=== PATIENT | female | born 1955 | race Caucasian/White ===

== ENCOUNTER 2016-11-03 13:26 | Emergency (ER) | payer OTHER ==
--- NOTE | 2016-11-03 14:12 | RAD ---
PORTABLE CHEST 1 VIEW: Date: 11/03/16 Time: 1339 hours HISTORY: Difficulty breathing, cough. FINDINGS: The heart size is normal. The lungs are well expanded without focal areas of consolidation, pneumoth orax, or pleural effusions. IMPRESSION: No radiographic evidence of acute cardiopulmonary process. POS: [facility]
[2016-11-03 14:17] LABS: Bilirubin Negative (Negative); Blood, Urine Negative (Negative); Glucose, Urine (Dipstick) Negative (Negative); Ketone, Urine Negative (Negative); Nitrite Negative (Negative); Protein, Urine (Dipstick) Negative (Neg-Trace); Urobilinogen 0.2 mg/dL (0.2-1.0)
[2016-11-03 14:27] LABS: ALT (SGPT) 18 U/L (0-55); AST (SGOT) 17 U/L (5-34); Alkaline Phosphatase 85 U/L (40-150); Anion Gap 15 mmol/L (10-20); BUN (Urea Nitrogen) 19 mg/dL (9.8-20.1); Bilirubin, Total 0.3 mg/dL (0.2-1.2); Calc. Creatinine Clearance 0 mL/min (70-130); Calcium 9.2 mg/dL (7.8-10.44); Carbon Dioxide 23 mmol/L (22-29); Chloride 107 mmol/L (98-107); Estimated GFR-MDRD 73; Protein, Total 7.2 g/dL (6.0-8.3)
[2016-11-03 14:31] LABS: Troponin I Less than 0.010 ng/mL (< 0.028)
[2016-11-03 14:33] LABS: Band 1 % (5-11); Hematocrit 43.6 % (36.0-47.0); Mean Platelet Volume 8.2 fL (7.4-10.4); Neutrophil 73 % (42-75); Red Blood Cell (RBC) Count 4.67 mill/uL (4.20-5.40); White Blood Cell (WBC) Count 11.8 thou/uL (4.8-10.8)
[2016-11-03] MEDS ORDERED: cefTRIAXone\\ROCEPHIN 1 GM VIAL ONE (14:48)
[2016-11-03] MEDS ORDERED: Sodium Chloride 0.9% 100 ML ONE (14:50)
[2016-11-03] MEDS ORDERED: Dexamethasone 20 MG/5 ML VIAL ONE (14:51)
== END 2016-11-03 15:35 | disposition home or self-care (01) ==
LOC: NAV ERS 13:26
DX: J06.9 Acute upper respiratory infection, unspecified (principal); I10 Essential (primary) hypertension; E78.5 Hyperlipidemia, unspecified; G25.81 Restless legs syndrome; F41.9 Anxiety disorder, unspecified; F32.9 Major depressive disorder, single episode, unspecified; F17.210 Nicotine dependence, cigarettes, uncomplicated; Z79.82 Long term (current) use of aspirin; Z79.899 Other long term (current) drug therapy
CPT/HCPCS: 71010; 80053; 81003; 82553; 83880; 84484; 85025; 93005; 96365; 96375; J0696; J1100; J7620

== ENCOUNTER 2017-11-18 20:39 | Emergency (ER) | payer OTHER ==
[2017-11-18] MEDS ORDERED: Dexamethasone 20 MG/5 ML VIAL ONE (21:16)
[2017-11-18] MEDS ORDERED: diphenhydrAMINE 25 MG CAP ONE (21:16)
== END 2017-11-18 21:35 | disposition home or self-care (01) ==
LOC: EDBD → NAV ERS 20:39
DX: T78.40XA Allergy, unspecified, initial encounter (principal); I10 Essential (primary) hypertension; E78.5 Hyperlipidemia, unspecified; F41.9 Anxiety disorder, unspecified; F32.9 Major depressive disorder, single episode, unspecified; F17.210 Nicotine dependence, cigarettes, uncomplicated; I73.9 Peripheral vascular disease, unspecified; G25.81 Restless legs syndrome
CPT/HCPCS: 93005; 96372; J1100

== ENCOUNTER 2017-12-30 13:46 | Emergency (ER) | payer OTHER | END 2017-12-30 14:22 | disposition home or self-care (01) | LOC: EDBD → NAV ERS 13:46 | DX: M25.511 Pain in right shoulder (principal); M54.6 Pain in thoracic spine; I73.9 Peripheral vascular disease, unspecified; E78.5 Hyperlipidemia, unspecified; I10 Essential (primary) hypertension; F41.9 Anxiety disorder, unspecified; F32.9 Major depressive disorder, single episode, unspecified; F17.210 Nicotine dependence, cigarettes, uncomplicated; Z79.82 Long term (current) use of aspirin; Z79.899 Other long term (current) drug therapy | CPT/HCPCS: 99283 ==

== ENCOUNTER 2018-06-27 13:37 | Emergency (ER) | payer OTHER ==
[2018-06-27] MEDS ORDERED: HYDROcodone/Acetaminophen 7.5/325 mg Tablet ONE (14:58)
[2018-06-27] MEDS ORDERED: Meclizine HCl 25 MG TAB ONE (14:58)
--- NOTE | 2018-06-27 15:28 | CT ---
CT HEAD NONCONTRAST: HISTORY: Headache. FINDINGS: There is no evidence of acute intracranial hemorrhage or infarct. Ventricles appear normal in size, shape, and position. There is no mass effect or shift of midline structures. IMPRESSION: No acute intracranial abnormalities are demonstrated. POS: [facility]
== END 2018-06-27 16:20 | disposition home or self-care (01) ==
LOC: NAV ERS 13:37
DX: H81.399 Other peripheral vertigo, unspecified ear (principal); G43.909 Migraine, unspecified, not intractable, without status migrainosus; E78.5 Hyperlipidemia, unspecified; I10 Essential (primary) hypertension; F41.9 Anxiety disorder, unspecified; F32.9 Major depressive disorder, single episode, unspecified; Z87.891 Personal history of nicotine dependence; Z79.82 Long term (current) use of aspirin; Z79.899 Other long term (current) drug therapy
CPT/HCPCS: 70450

== ENCOUNTER 2023-08-17 11:10 | Outpatient (CLI) | payer MEDICARE | END 2023-08-17 11:11 | disposition home or self-care (01) | LOC: NAV RAD 11:10 | PROVIDERS: ATTEND Family Medicine | DX: M19.041 Primary osteoarthritis, right hand (principal) ==

== ENCOUNTER 2024-11-15 15:21 | Emergency (ER) | payer OTHER ==
[2024-11-15 15:56] LABS: #Basophils 0.1 thou/uL (0.0-0.2); #Eosinophils 0.1 thou/uL (0.0-0.7); #Lymphocytes 0.8 thou/uL (1.20-3.40); #Monocytes 0.6 thou/uL (0.11-0.59); #Neutrophils 5.2 thou/uL (1.40-6.50); %Basophils 0.8 % (0.0-1.0); %Eosinophils 0.9 % (0.0-10.0); %Lymphocytes 11.9 % (21.0-51.0); %Monocytes 8.7 % (0.0-10.0); %Neutrophils 77.7 % (42.0-75.0); Hematocrit 45.7 % (36.0-47.0); Hemoglobin 14.3 g/dL (12.0-16.0); Mean Corpuscular HGB CONC 31.3 g/dL (32.0-36.0); Mean Corpuscular Hemoglobin 28.5 pg (27.0-31.0); Mean Corpuscular Volume 90.9 fl (78.0-98.0); Mean Platelet Volume 8.2 fL (7.4-10.4); Platelet Count 204 10x3/uL (130-400); RBC Distribution Width 11.8 % (11.5-14.5); Red Blood Cell (RBC) Count 5.03 mill/uL (4.20-5.40); White Blood Cell (WBC) Count 6.7 10x3/uL (4.8-10.8)
[2024-11-15] MEDS ORDERED: Aspirin Chewable 81 MG TAB ONE (16:07)
[2024-11-15] MEDS ORDERED: Nitroglycerin 2% Ointment 1 INCH/1 GM Packet ONE (16:07)
[2024-11-15] MEDS ORDERED: Ipratropium/Albuterol 3 ML NEB ONE (16:07)
[2024-11-15 16:14] LABS: ALT (SGPT) 32 U/L (Less than 34); AST (SGOT) 27 U/L (11-34); Albumin 2.5 g/dL (3.1-4.5); Alkaline Phosphatase 93 U/L (40-110); Anion Gap 12 mmol/L (10-20); BUN (Urea Nitrogen) 19 mg/dL (9.8-20.1); Bilirubin, Total 0.3 mg/dL (0.3-1.2); Calc. Creatinine Clearance 0 mL/min (70-130); Calcium 9.1 mg/dL (7.8-10.44); Carbon Dioxide 27 mmol/L (23-31); Chloride 108 mmol/L (98-107); Estimated GFR 96; Globulin 3.9 g/dL (2.4-3.5); Glucose 112 mg/dL (80-115); Potassium 3.2 mmol/L (3.5-5.1); Protein, Total 6.4 g/dL (5.8-8.1); Sodium 144 mmol/L (136-145)
[2024-11-15 16:19] LABS: Troponin I Less than 0.010 ng/mL (< 0.028)
[2024-11-15] MEDS ORDERED: Sodium Chloride 0.9% 250 ML 250 ML ONE (17:40)
[2024-11-15] MEDS ORDERED: dilTIAZem 25 MG/5 ML VIAL ONE (17:40)
[2024-11-15] MEDS ORDERED: Azithromycin 500 MG VIAL ONE (17:40)
[2024-11-15] MEDS ORDERED: Furosemide 40 MG (4 mL) VIAL ONE (17:40)
[2024-11-15] MEDS ORDERED: dilTIAZem CD 120 MG CAP ONE (18:14)
[2024-11-15] MEDS ORDERED: cefTRIAXone (ROCEPHIN) 2 GM VIAL ONE (19:08)
[2024-11-15] MEDS ORDERED: Sodium Chloride 0.9% 100 ML ONE (19:08)
== END 2024-11-15 20:50 | disposition short-term general hospital (02) ==
LOC: NAV ERS 15:21
DX: J18.9 Pneumonia, unspecified organism (principal); R09.02 Hypoxemia; I48.92 Unspecified atrial flutter; I11.0 Hypertensive heart disease with heart failure; I50.9 Heart failure, unspecified; I48.91 Unspecified atrial fibrillation; E78.5 Hyperlipidemia, unspecified; Z79.01 Long term (current) use of anticoagulants; Z79.899 Other long term (current) drug therapy; Z79.82 Long term (current) use of aspirin
CPT/HCPCS: 71045; 80053; 83880; 84484; 85025; 87428; 93005; 94640; 94760; J0456; J0696; J1940; J7050; 96365; 96367; 96375; J7620